=== PATIENT | female | born 1960 | race Caucasian/White ===

== ENCOUNTER 2017-06-15 13:47 | Emergency (ER) | payer OTHER ==
[~2017-06-15] VITALS: Ht 160 cm; Wt 86.2 kg
[2017-06-15 13:48] VITALS: BP 149/64
--- NOTE | 2017-06-15 13:58 | NUR ---
PATIENT TO ER BED 10
--- NOTE | 2017-06-15 14:05 | NUR ---
PT. BIB WITH C/O R UPPER QUADRANT PAIN THAT RADIATES TO R BACK. PT. STATES IT IS 10/10 PAIN THAT IS SHARP AND SUDDEN THAT STARTED X 2 HOURS. AAOX4. RR EVEN AND UNLABORED. LS: CLEAR. DENIES SOB, DENIES CHEST PAIN, N/V IS PRESENT FOR 2 HOURS, PT. DENIES DIAHRRHEA. Marcy LAZAR NOTIFIED. WILL CONTINUE TO MONITOR
[2017-06-15] MEDS ORDERED: NACL 0.9% 500 ML IV ONE (14:11)
[2017-06-15] MEDS ORDERED: ONDANSETRON 4 MG/2 ML VIAL IVP ONE (14:15)
[2017-06-15] MEDS ORDERED: KETOROLAC 30 MG/ML VIAL IVP ONE (14:15)
[2017-06-15 14:36] LABS: BASOPHILS # (AUTO) 0.1 K/uL (0.00-0.22); BASOPHILS % (AUTO) 0.6 % (0.0-2.0); EOSINOPHILS % (AUTO) 0.5 % (0.0-4.0); HEMATOCRIT 40.9 % (36-48); HEMOGLOBIN 13.4 g/dL (12.0-16.0); LYMPHOCYTES # (AUTO) 2.3 K/uL (2.5-16.5); LYMPHOCYTES % (AUTO) 24.8 % (20.5-51.1); MEAN CORPUSCULAR HEMOGLOBIN 30 pg (27-31); MEAN CORPUSCULAR HGB CONC 33 g/dL (33-37); MEAN CORPUSCULAR VOLUME 90.7 fL (80-94); MONOCYTES # (AUTO) 0.4 K/uL (0.8-1.0); MONOCYTES % (AUTO) 4.4 % (1.7-9.3); NEUTROPHILS # (AUTO) 6.4 K/uL (1.8-7.7); NEUTROPHILS % (AUTO) 69.7 % (42.2-75.2); PLATELET COUNT (AUTO) 264 K/uL (140-450); RED CELL DISTRIBUTION WIDTH 13.5 % (11.6-13.7); WHITE BLOOD COUNT (AUTO) 9.2 K/uL (4.8-10.8)
[2017-06-15 14:50] LABS: ALBUMIN 4.4 g/dL (3.4-5.0); ANION GAP 15.1 (8-16); CREATININE 0.8 mg/dL (0.6-1.3); POTASSIUM 4.1 mmol/L (3.5-5.1); TOTAL BILIRUBIN 0.3 mg/dL (0.0-1.0)
--- NOTE | 2017-06-15 15:03 | NUR ---
PT. RESTING COMFORTABLY IN BED, RR EVEN AND UNLABORED, PT. STATES " THE PAIN HAS GONE DOWN A LOT I JUST FEEL LIKE RESTING". AT BEDSIDE. WILL CONTINUE TO MONITOR.
[2017-06-15] MEDS ORDERED: traMADol 50 MG TAB PO ONE (15:50)
[2017-06-15 16:07] VITALS: BP 159/69
--- NOTE | 2017-06-15 16:07 | NUR ---
Patient discharged with v/s stable. Written and verbal after care instructions given and explained. Patient alert, oriented and verbalized understanding of instructions. Ambulatory with steady gait. All questions addressed prior to discharge. ID band removed. Patient advised to follow up with PMD. Rx of ZOFRAN AND TRAMADOL given. Patient educated on indication of medication including possible reaction and side effects. Opportunity to ask questions provided and answered.
== END 2017-06-15 16:07 | disposition home or self-care (01) ==
LOC: MED 13:47
DX: N20.2 Calculus of kidney with calculus of ureter (principal); Z86.73 Personal history of transient ischemic attack (TIA), and cerebral infarction without residual deficits
CPT/HCPCS: 36415; 74176; 80053; 81002; 81025; 85025; 96361; 96374; 96375; 99285; J1885; J2405

== ENCOUNTER 2017-06-16 21:42 | Inpatient (IN) | payer OTHER ==
[~2017-06-16] VITALS: Ht 157.5 cm; Wt 72.6 kg
[2017-06-16 21:51] VITALS: BP 141/59
--- NOTE | 2017-06-16 22:04 | NUR ---
56Y F BIB FAMILY C/O RIGHT FLANK PAIN X 2 DAYS. PT STATS SHE WAS SEEN HERE YESTERDAY FOR SIMILAR COMPLAINT AND WAS TOLD SHE HAS KIDNEY STONES AND GIVEN ULTRAM 50MG FOR PAIN, BUT STATES PAIN NOT RELIEVED. PT ALSO COMPLAINS OF NAUSEA AND VOMITING. PT AAOX4, BREATHING IS UNLABORED AND EVEN. PT AMBULATED TO OF CHAIR B. MD DR YAO MADE AWARE.
--- NOTE | 2017-06-16 22:24 | NUR ---
PATIENT MOVED TO ER BED 10.
[2017-06-16] MEDS ORDERED: KETOROLAC 30 MG/ML VIAL IVP ONE (22:30)
[2017-06-16] MEDS ORDERED: ONDANSETRON 4 MG/2 ML VIAL IVP ONE (22:30)
[2017-06-16] MEDS ORDERED: MORPHINE SULFATE 4 MG/ML SYR IVP ONE (22:30)
[2017-06-16] MEDS ORDERED: NACL 0.9% 1,000 ML IV ONE (22:30)
--- NOTE | 2017-06-17 | NUR ---
PATIENT RESTING AT THIS TIME. NO SIGNS OF DISTRESS.
[2017-06-17 00:15] LABS: APPEARANCE,URINE CLEAR (CLEAR); BILIRUBIN,URINE NEGATIVE (NEGATIVE); BLOOD, URINE 3+ (NEGATIVE); COLOR,URINE YELLOW (YELLOW); LEUKOCYTE ESTERASE ,URINE NEGATIVE (NEGATIVE); NITRITE, URINE NEGATIVE (NEGATIVE); UGLUCOSE NEGATIVE (NEGATIVE)
[2017-06-17 00:26] LABS: RBC,URINE 11-20 (MOD) /HPF (0-5)
[2017-06-17 00:56] LABS: BASOPHILS % (AUTO) 0.1 % (0.0-2.0); EOSINOPHILS % (AUTO) 0.4 % (0.0-4.0); HEMATOCRIT 36.4 % (36-48); HEMOGLOBIN 12.1 g/dL (12.0-16.0); LYMPHOCYTES # (AUTO) 1.8 K/uL (2.5-16.5); MEAN CORPUSCULAR HEMOGLOBIN 30 pg (27-31); MEAN CORPUSCULAR HGB CONC 33 g/dL (33-37); MEAN CORPUSCULAR VOLUME 90.7 fL (80-94); MONOCYTES # (AUTO) 0.7 K/uL (0.8-1.0); NEUTROPHILS # (AUTO) 7.8 K/uL (1.8-7.7); NEUTROPHILS % (AUTO) 75.5 % (42.2-75.2); PLATELET COUNT (AUTO) 229 K/uL (140-450); RED BLOOD CELL COUNT(AUTO) 4.02 MIL/uL (4.20-5.40); RED CELL DISTRIBUTION WIDTH 13.6 % (11.6-13.7); WHITE BLOOD COUNT (AUTO) 10.4 K/uL (4.8-10.8)
[2017-06-17] MEDS ORDERED: cefTRIAXone 1,000 MG VIAL ONE (00:57)
--- NOTE | 2017-06-17 01:00 | NUR ---
PATIENT RESTING AT THIS TIME.
[2017-06-17 01:12] LABS: ANION GAP 13.8 (8-16); CREATININE 0.8 mg/dL (0.6-1.3); POTASSIUM 3.8 mmol/L (3.5-5.1)
[2017-06-17 01:18] LABS: TOTAL BILIRUBIN 0.6 mg/dL (0.0-1.0)
[2017-06-17] MEDS: NACL 0.9% 1,000 ML IV SCH ×5 (01:49→21:49)
[2017-06-17] MEDS ORDERED: ONDANSETRON 4 MG/2 ML VIAL IVP PRN (01:50)
[2017-06-17] MEDS ORDERED: MORPHINE SULFATE 4 MG/ML SYR IVP PRN (01:50)
[2017-06-17] MEDS ORDERED: ACETAMINOPHEN 325 MG TAB PO PRN (01:50)
--- NOTE | 2017-06-17 02:10 | NUR ---
Pt transferred to Med/Surg via .
--- NOTE | 2017-06-17 02:10 | NUR ---
Patient will be admitted to care of DR. JOHNSON. Admited to M/S. Will go to room 125A. Belongings list completed. Report to FERNANDA BETHEA.
--- NOTE | 2017-06-17 02:11 | NUR ---
Patient's Plan of Care was discussed and reviewed with MYRA: JESSA
[2017-06-17 02:15] VITALS: BP_SYST 105; BP_SYST 97; BP_DIAS 42; BP_DIAS 49
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
--- NOTE | 2017-06-17 03:00 | NUR ---
IV LINE INFILTRATED, WILL INSERT NEW IV LINE.
--- NOTE | 2017-06-17 03:45 | NUR ---
NEW IV LINE INSERTED BY [place] AT THE LEFT FOREARM G22.
--- NOTE | 2017-06-17 04:05 | NUR ---
STARTED TO INFUSED ORDERED 1 LITER OF NS AT 150 ML/HR. PATIENT SLEEPING COMFORTABLY.
--- NOTE | 2017-06-17 05:30 | NUR ---
STILL SLEEPING COMFORTABLY IN BED.
--- NOTE | 2017-06-17 06:52 | NUR ---
STILL SLEEPING COMFORTABLY IN BED. CONDITION REMAIN STABLE. WILL ENDORSE TO AM NURSE FOR CONTINUITY OF CARE.
--- NOTE | 2017-06-17 07:20 | NUR ---
CONDITION REMAIN STABLE. ENDORSED TO AM NURSE FOR CONTINUITY OF CARE.
[2017-06-17 08:00] VITALS: BP 157/78
--- NOTE | 2017-06-17 08:00 | NUR ---
PATIENT AWAKE, ALERT. RESPIRATION EVEN, UNLABOR ON ROOM AIR. SKIN DRY AND WARM. IV PATENT AND INTACT. DENIED PAIN, N/V AT THIS TIME. VS IS STABLE. PLAN OF CARE WAS DISCUSSED WITH PATIENT. BED AT LOW POSITION, SIDE RAILS UP. CALL LIGHT WITHIN REACH
--- NOTE | 2017-06-17 08:30 | NUR ---
IVF NS 1000ML WAS FINISHED AT 08
--- NOTE | 2017-06-17 09:00 | NUR ---
INSTRUCTED PATIENT ON BEING STRICT I&O. PATIENT VERBALIZED UNDERSTANDING.
[2017-06-17] MEDS: ENOXAPARIN 40 MG/0.4 ML SYR SUBQ SCH (09:07)
--- NOTE | 2017-06-17 10:00 | NUR ---
NEW IVF NS 1000 ML WAS HUNG.
--- NOTE | 2017-06-17 11:54 | NUR ---
PATIENT IS AWAKE, ALERT. RESPIRATION EVEN, UNLABOR ON ROOM AIR. COMPLAINED RIGHT FLANK PAIN 5/10, WILL MEDICATE PER ORDER.
[2017-06-17] MEDS: HYDROcodone/APAP 5/325 MG 1 TAB TAB PO PRN (12:02)
--- NOTE | 2017-06-17 14:00 | NUR ---
PATIENT FORGOT TO USE URINE COLLECTION HAT. REEXPLAINED TO PATIENT ABOUT STRICT I&O. PATIENT VERBALIZED UNDERSTANDING
--- NOTE | 2017-06-17 14:30 | NUR ---
PATIENT IS AWAKE, ALERT. RESPIRATION EVEN, UNLABOR ON ROOM AIR. DENIED PAIN. NO DISTRESS NOTED AT THIS TIME
--- NOTE | 2017-06-17 15:09 | NUR ---
IVF NS 1000 WAS FINISHED AT 1509.
--- NOTE | 2017-06-17 15:42 | NUR ---
NEW IVF NS 1000 ML WAS HUNG AT 1542
[2017-06-17 16:00] VITALS: BP 122/53
--- NOTE | 2017-06-17 16:38 | NUR ---
PATIENT IS SLEEPING COMFORTABLY. RESPIRATION EVEN, UNLABOR ON ROOM AIR. VS IS STABLE. NO DISTRESS NOTED AT THIS TIME. CALL LIGHT WITHIN REACH. FAMILY AT BEDSIDE
--- NOTE | 2017-06-17 18:09 | NUR ---
PATIENT AWAKE, ALERT, EATING DINNER. FAMILY AT BEDSIDE. NO DISTRESS NOTED AT THIS TIME. DENIED PAIN. IV PATENT AND INTACT. CALL LIGHT WITHIN REACH.
--- NOTE | 2017-06-17 19:20 | NUR ---
ENDORSEMENT GIVEN TO THE BARK SKINNER NURSE. PATIENT IS STABLE AT THIS TIME
--- NOTE | 2017-06-17 19:30 | NUR ---
RECEIVED PT REPORT FROM DEBORAH AT BEDSIDE FOR CONTINUITY OF CARE. PT AWAKE AO X4. NO S/S OF DISTRESS. PT ON SOB, PT RA. NO C/O PAIN AT THIS TIME. IV LINE NOTED LFA 22G NS 150ML/HR. BED LOWERED CALL LIGHT WITHIN REACH. WILL CONTINUE TO MONITOR.
--- NOTE | 2017-06-17 21:59 | NUR ---
CHECKED ON PATIENT. PT IS RESTING ON BED AWAKE WILL CONTINUE TO MONITOR.
[2017-06-18] VITALS: BP 120/60
--- NOTE | 2017-06-18 04:00 | NUR ---
PT CALLED TO LET ME KNOW HER URINAL HAT WAS FULL WILL CONTINUE TO MONITOR
[2017-06-18] MEDS: NACL 0.9% 1,000 ML IV SCH ×3 (05:19→17:49)
[2017-06-18 06:06] LABS: BASOPHILS # (AUTO) 0.1 K/uL (0.00-0.22); BASOPHILS % (AUTO) 0.9 % (0.0-2.0); EOSINOPHILS # (AUTO) 0.2 K/uL (0-0.4); EOSINOPHILS % (AUTO) 2.8 % (0.0-4.0); HEMATOCRIT 33.7 % (36-48); HEMOGLOBIN 11.1 g/dL (12.0-16.0); LYMPHOCYTES # (AUTO) 3.4 K/uL (2.5-16.5); LYMPHOCYTES % (AUTO) 53.3 % (20.5-51.1); MEAN CORPUSCULAR HEMOGLOBIN 30 pg (27-31); MEAN CORPUSCULAR HGB CONC 33 g/dL (33-37); MEAN CORPUSCULAR VOLUME 91.3 fL (80-94); MONOCYTES # (AUTO) 0.5 K/uL (0.8-1.0); MONOCYTES % (AUTO) 7.4 % (1.7-9.3); NEUTROPHILS # (AUTO) 2.2 K/uL (1.8-7.7); NEUTROPHILS % (AUTO) 35.6 % (42.2-75.2); PLATELET COUNT (AUTO) 219 K/uL (140-450); RED CELL DISTRIBUTION WIDTH 13.4 % (11.6-13.7); WHITE BLOOD COUNT (AUTO) 6.3 K/uL (4.8-10.8)
--- NOTE | 2017-06-18 07:23 | NUR ---
GAVE REPORT TO DAYSHIFT NURSE FOR CONTINUITY OF CARE. WILL CONTINUE WITH PLAN OF CARE.
--- NOTE | 2017-06-18 07:23 | NUR ---
PT IN BED RESTING BUT AROUSABLE TO NAME. SHE IS AO X4. SKIN INTACT HAS A IV SITE L F/A 22 G WITH NACL RUNNING AT 150MLS /HR. PT HERE FOR KIDNEY STONE. SHE SAID SHE HAD PAIN 7/10 HEADACHE BUT NO COMPLAINS OF URINARY DISCOMFORT LAST BM 06/16. PT REMAINS ON I AND O MONIOTRING. SHE DECLINED MOST OF HER BREAKFAST DUE TO WANTING EGG WHITES INSTEAD OF SCRAMBLED EGGS. PT GIVEN PRN MEDICATION FOR HEADACHE WITH MORNING MED PASS.
[2017-06-18 07:33] LABS: ANION GAP 11.4 (8-16); POTASSIUM 3.4 mmol/L (3.5-5.1)
[2017-06-18 07:34] LABS: CREATININE 0.6 mg/dL (0.6-1.3)
[2017-06-18 08:00] VITALS: BP 147/59
[2017-06-18] MEDS: ENOXAPARIN 40 MG/0.4 ML SYR SUBQ SCH (08:17)
[2017-06-18] MEDS: HYDROcodone/APAP 5/325 MG 1 TAB TAB PO PRN (08:19)
[2017-06-18] MEDS ORDERED: TAMSULOSIN 0.4 MG CAP PO SCH (08:30)
--- NOTE | 2017-06-18 10:03 | NUR ---
CM NOTE INITIAL REVIEW FAXED TO [facility] [phone] PH# [phone] [facility] EXT [phone] AND TO CENTER LINE FACULTY [phone] PH# [phone] KEVON *[phone]
[2017-06-18 10:58] LABS: MAGNESIUM 2.2 mg/dL (1.8-2.4)
--- NOTE | 2017-06-18 11:30 | NUR ---
PATIENT HAS BEEN SCREENED AND CATEGORIZED LOW NUTRITION RISK. PATIENT WILL BE SEEN WITHIN 7 DAYS OF ADMISSION. 06/24/[address]
--- NOTE | 2017-06-18 13:15 | NUR ---
IV SITE IN LEFT F/A WAS NOTED SLIGHTLY RED AND WOULD NOT FLUSH, NEW IV SITE 20G ON AN ALTERNATE SITE OF LEFT F/A WAS PROVIDED FOR PT. NEW IV FLUSHED PT ON NACL FLUIDS ARE RUNNING ORDERED.
[2017-06-18 16:00] VITALS: BP 104/51
[2017-06-18] MEDS ORDERED: POTASSIUM CHLORIDE 10 MEQ TABER PO SCH (16:00)
--- NOTE | 2017-06-18 17:30 | NUR ---
PT DISCHARGED TO HOME, WITH ALL BELONGINGS, VSS ON DISCHARGE, DISCHARGE INSTRUCTIONS EXPLAINED TO PT, WITH THE OPPORTUNITY TO ASK QUESTIONS, PT VERBALIZED UNDERSTANDING. PERIPHERAL IV SITE OUT AND ID BAND REMOVED.
--- NOTE | 2017-06-18 19:35 | NUR ---
PT STABLE UPON DISCHARGE, ACCOMPANIED BY FAMILY MEMBER.
== END 2017-06-18 19:35 | disposition home or self-care (01) | DRG 465 ==
LOC: MED 21:42 → MMU 06-17 01:55 → OBSVTOIN 06-17 15:30
PROVIDERS: ADMIT Hospitalist; ATTEND Hospitalist
DX: N13.2 Hydronephrosis with renal and ureteral calculous obstruction (principal); N39.0 Urinary tract infection, site not specified; Z86.73 Personal history of transient ischemic attack (TIA), and cerebral infarction without residual deficits; Z82.5 Family history of asthma and other chronic lower respiratory diseases; Z82.49 Family history of ischemic heart disease and other diseases of the circulatory system
CPT/HCPCS: 96361; 96365; 96375; 99218; 99285; G0378; 36415; 80048; 80053; 81001; 81025; 83735; 84100; 85025; 87081; 87086; J0696; J1650; J1885; J2270; J2405; J7030; J7060

== ENCOUNTER 2018-07-11 06:40 | Emergency (ER) | payer OTHER ==
[~2018-07-11] VITALS: Ht 157.5 cm; Wt 83.9 kg
[2018-07-11 06:47] VITALS: BP 135/82
--- NOTE | 2018-07-11 06:47 | NUR ---
TO BED # 03 AMBULATORY.
--- NOTE | 2018-07-11 07:03 | NUR ---
57 YO F BIB SELF PRESENTS TO ED C/O 09/28 RIGHT SHOULDER PAIN S/P FALL ONTO FLOOR AT WORK YESTERDAY. ROM AFFECTED. RADIAL PULSE STRONG. CAP REFILL <3 SECONDS, BRISK. NO BRUISING, SWELLING, GROSS TRAUMA/DEFORMITY NOTED. LARGE AREA OF ECCHYMOSIS NOTED TO LEFT SIDE RIB CAGE. PMH-- DENIES RX-- DENIES
--- NOTE | 2018-07-11 07:48 | NUR ---
UA DONE, XRAY DONE.
[2018-07-11] MEDS ORDERED: KETOROLAC 60 MG/2 ML VIAL IM ONE (07:50)
--- NOTE | 2018-07-11 09:09 | NUR ---
Pt report given to Shima. Transfer of care at this time.
--- NOTE | 2018-07-11 09:44 | NUR ---
Patient appears to be resting comfortably in bed. Vital Signs within normal limits.
[2018-07-11 10:11] VITALS: BP 135/55
== END 2018-07-11 10:11 | disposition home or self-care (01) ==
LOC: MED 06:40
DX: S46.911A Strain of unspecified muscle, fascia and tendon at shoulder and upper arm level, right arm, initial encounter (principal); S20.20XA Contusion of thorax, unspecified, initial encounter; Z86.73 Personal history of transient ischemic attack (TIA), and cerebral infarction without residual deficits; W01.0XXA Fall on same level from slipping, tripping and stumbling without subsequent striking against object, initial encounter; Y93.89 Activity, other specified; Y92.89 Other specified places as the place of occurrence of the external cause; Y99.0 Civilian activity done for income or pay
CPT/HCPCS: 71101; 73030; 81002; 81025; 96372; 99283; J1885; Q0092

== ENCOUNTER 2018-07-25 21:05 | Emergency (ER) | payer OTHER ==
[~2018-07-25] VITALS: Ht 152.4 cm; Wt 87.1 kg
[2018-07-25 21:10] VITALS: BP 130/60
--- NOTE | 2018-07-25 21:10 | NUR ---
TO BED # 02 AMBULATORY
--- NOTE | 2018-07-25 21:25 | NUR ---
BIB SELF REPORTS DRY COUGH X 2 WEEKS. LUNG SOUNDS DIMINISHED THROUGHOUT. STATES NO OTHER SYMPTOMS. DENIES CP, SOB, FEVER, NVD, OR PAIN AT THIS TIME. NO LABORED BREATHING, PATIENT SPEAKING IN FULL SENTENCES. ERMD AWARE OF STATUS. BED IN LOW LOCKED POSITION.
[2018-07-25] MEDS ORDERED: ALBUTEROL SULFATE/IPRATROPIU 3 ML SOL IH ONE ×2 (21:50→23:20)
--- NOTE | 2018-07-25 22:05 | NUR ---
RT AT BEDSIDE FOR INTERVENTION.
[2018-07-25] MEDS ORDERED: predniSONE 20 MG TAB PO ONE (23:25)
[2018-07-26 00:47] VITALS: BP 135/62
--- NOTE | 2018-07-26 00:48 | NUR ---
Patient discharged with v/s stable. Written and verbal after care instructions given and explained. Patient alert, oriented and verbalized understanding of instructions. Ambulatory with steady gait. All questions addressed prior to discharge. ID band removed. Patient advised to follow up with PMD. Rx of PREDNISONE, ALBUTEROL INH given. Patient educated on indication of medication including possible reaction and side effects. Opportunity to ask questions provided and answered.
== END 2018-07-26 00:48 | disposition home or self-care (01) ==
LOC: MED 21:05
DX: R05 Cough (principal); R06.02 Shortness of breath; R50.9 Fever, unspecified; Z86.73 Personal history of transient ischemic attack (TIA), and cerebral infarction without residual deficits
CPT/HCPCS: 71045; 94640; 94760; 99284; J7512; J7620; Q0092

== ENCOUNTER 2021-05-27 15:55 | Emergency (ER) | payer OTHER ==
[~2021-05-27] VITALS: Ht 152.4 cm; Wt 90.3 kg
[2021-05-27 15:55] VITALS: BP 163/89
--- NOTE | 2021-05-27 16:27 | NUR ---
AMBULATED TO BED 1
[2021-05-27] MEDS ORDERED: KETOROLAC 30 MG/ML VIAL IM ONE (16:45)
--- NOTE | 2021-05-27 16:49 | NUR ---
60 YEARS OLD FEMALE WALKING TO ER C/O ACUTE RIGHT KNEE PAIN AFTER FALL 1 WEEK AGO NO RELIEF WITH PRESCRIBED IBUPROFEN.
[2021-05-27] MEDS ORDERED: ACET-8386 PO (17:57)
[2021-05-27 18:13] VITALS: BP 140/80
--- NOTE | 2021-05-27 18:15 | NUR ---
Patient discharged with v/s stable. Written and verbal after care instructions given and explained to paTIENT. verbalized understanding. Ambulatorysteady gait. All questions addressed prior to discharge. Advised to follow up with PMD.
== END 2021-05-27 18:15 | disposition home or self-care (01) ==
LOC: MED 15:55
DX: M79.604 Pain in right leg (principal); Z86.73 Personal history of transient ischemic attack (TIA), and cerebral infarction without residual deficits
CPT/HCPCS: 73560; 73590; 93971; 96372; 99284; J1885; Q0092

== ENCOUNTER 2022-08-02 20:29 | Emergency (ER) | payer OTHER ==
[~2022-08-02] VITALS: Ht 160 cm; Wt 89.8 kg
[~2022-08-02 20:29] MED LIST: ACET-8905 PO
[2022-08-02 20:30] VITALS: BP 150/71
--- NOTE | 2022-08-02 20:33 | NUR ---
TO LOBBY A/W BED AMBULATORY
--- NOTE | 2022-08-02 21:36 | NUR ---
PT TO BED #4
--- NOTE | 2022-08-02 22:08 | NUR ---
61 Y/O F from home presents with lower back stabbing pain /10 radiating to ABD x2days. pt denies any NVD or headaches. pt is A&Ox4, skin intact, respirations even and unlabored, ambulatory. pt stated she took ibuprofen at home with no relief. pmh- pt denies NKA
--- NOTE | 2022-08-02 22:13 | NUR ---
Dr. Clark examining patient.
[2022-08-02] MEDS ORDERED: KETOROLAC 30 MG/ML VIAL IM ONE (22:25)
[2022-08-02] MEDS ORDERED: LIDOCAINE 5% 1 EA PATCH TP ONE (22:25)
[2022-08-02] MEDS ORDERED: ACETAMINOPHEN EXTRA STRENGTH 500 MG TAB PO ONE (22:25)
--- NOTE | 2022-08-02 23:00 | NUR ---
PT RETURN FROM XRAY
[2022-08-03] MEDS ORDERED: CYCL-711 PO (00:02)
[2022-08-03] MEDS ORDERED: IBUP-2213 PO (00:02)
[2022-08-03] MEDS ORDERED: ACET-10509 PO (00:02)
--- NOTE | 2022-08-03 00:10 | NUR ---
Patient discharged with v/s stable. Written and verbal after care instructions given and explained. Patient alert, oriented and verbalized understanding of instructions. Ambulatory with steady gait. All questions addressed prior to discharge. ID band removed. Patient advised to follow up with PMD. Rx of tylenol extra strength, flexeril, and ibuprofen given. Opportunity to ask questions provided and answered.
== END 2022-08-03 00:10 | disposition home or self-care (01) ==
LOC: MED 20:29
DX: S39.012A Strain of muscle, fascia and tendon of lower back, initial encounter (principal); Z79.899 Other long term (current) drug therapy; X58.XXXA Exposure to other specified factors, initial encounter; Y93.89 Activity, other specified; Y92.89 Other specified places as the place of occurrence of the external cause; Y99.8 Other external cause status
CPT/HCPCS: 72100; 96372; 99283; J1885

== ENCOUNTER 2022-08-05 16:14 | Emergency (ER) | payer OTHER ==
[~2022-08-05] VITALS: Ht 162.6 cm; Wt 89.8 kg
[~2022-08-05 16:14] MED LIST changes: +ACET-10509 PO; +CYCL-711 PO; +IBUP-2213 PO
[2022-08-05 16:26] VITALS: BP 137/73
--- NOTE | 2022-08-05 16:35 | NUR ---
HERE FOR RASH LEFT FLANK, NO PAIN
[2022-08-05] MEDS ORDERED: KETOROLAC 30 MG/ML VIAL IM ONE (18:20)
[2022-08-05] MEDS ORDERED: HYDROcodone/APAP 5/325 MG 1 TAB TAB PO ONE (18:20)
[2022-08-05] MEDS ORDERED: ACYC-279 PO (18:28)
[2022-08-05 19:12] VITALS: BP 129/74
--- NOTE | 2022-08-05 19:19 | NUR ---
dc'd home, a/o times 4, nad, pain 02/28 Patient discharged with v/s stable. Written and verbal after care instructions given and explained. Patient verbalized understanding. Ambulatory with steady gait. All questions addressed prior to discharge. Advised to follow up with PMD.
== END 2022-08-05 19:12 | disposition home or self-care (01) ==
LOC: MED 16:14
DX: B02.9 Zoster without complications (principal); Z79.899 Other long term (current) drug therapy; Z98.890 Other specified postprocedural states
CPT/HCPCS: 96372; 99283; J1885

== ENCOUNTER 2022-12-21 23:49 | Emergency (ER) | payer OTHER ==
[~2022-12-21] VITALS: Ht 152.4 cm; Wt 89.8 kg
[~2022-12-21 23:49] MED LIST changes: +ACYC-279 PO
[2022-12-22] VITALS: BP 169/78; PULSE 65; RESP 16; TEMP 97.7; O2SAT 97
[2022-12-22 01:55] LABS: APPEARANCE,URINE CLEAR (CLEAR); BILIRUBIN,URINE NEGATIVE (NEGATIVE); BLOOD, URINE NEGATIVE (NEGATIVE); COLOR,URINE YELLOW (YELLOW); LEUKOCYTE ESTERASE ,URINE NEGATIVE (NEGATIVE); NITRITE, URINE NEGATIVE (NEGATIVE); PH,URINE 7.5 (5.0-9.0); PROTEIN,URINE NEGATIVE (NEGATIVE); UGLUCOSE NEGATIVE (NEGATIVE); UROBILINOGEN,URINE 0.2 EU/dL (0.2 - 1)
[2022-12-22] MEDS ORDERED: DICYCLOMINE 20 MG/2 ML VIAL IM ONE (02:25)
[2022-12-22] MEDS ORDERED: ONDANSETRON 4 MG/2 ML VIAL IVP ONE (02:25)
[2022-12-22] MEDS ORDERED: NACL 0.9% 1,000 ML IV ONE (02:25)
[2022-12-22 03:19] LABS: BASOPHILS # (AUTO) 0.1 K/uL (0.00-0.22); BASOPHILS % (AUTO) 0.8 % (0.0-2.0); EOSINOPHILS % (AUTO) 0.1 % (0.0-4.0); HEMATOCRIT 40.6 % (36-48); HEMOGLOBIN 13.5 g/dL (12.0-16.0); LYMPHOCYTES # (AUTO) 1.9 K/uL (2.5-16.5); MEAN CORPUSCULAR HEMOGLOBIN 30 pg (27-31); MEAN CORPUSCULAR HGB CONC 33 g/dL (33-37); MEAN CORPUSCULAR VOLUME 91.4 fL (80-94); MONOCYTES # (AUTO) 0.3 K/uL (0.8-1.0); MONOCYTES % (AUTO) 3.3 % (1.7-9.3); NEUTROPHILS # (AUTO) 8.3 K/uL (1.8-7.7); NEUTROPHILS % (AUTO) 77.8 % (42.2-75.2); PLATELET COUNT (AUTO) 266 K/uL (140-450); RED BLOOD CELL COUNT(AUTO) 4.44 MIL/uL (4.20-5.40); RED CELL DISTRIBUTION WIDTH 13.3 % (11.6-13.7); WHITE BLOOD COUNT (AUTO) 10.7 K/uL (4.8-10.8)
[2022-12-22 03:44] LABS: ALBUMIN 4.1 g/dL (3.4-5.0); ANION GAP 14.5 (8-16); CALCIUM 8.7 mg/dL (8.5-10.1); CARBON DIOXIDE 25.9 mmol/L (21-32); CREATININE 0.7 mg/dL (0.6-1.3); POTASSIUM 4.4 mmol/L (3.5-5.1); TOTAL BILIRUBIN 0.6 mg/dL (0.0-1.0); TOTAL PROTEIN, SERUM 8.3 g/dL (6.4-8.2)
[2022-12-22] MEDS ORDERED: ONDA-188 SL ×2 (04:10→04:22)
[2022-12-22] MEDS ORDERED: BEN10 PO ×2 (04:10→04:22)
[2022-12-22 04:20] VITALS: BP 161/59; PULSE 62; RESP 16; TEMP 97.7; O2SAT 96
== END 2022-12-22 04:20 | disposition home or self-care (01) ==
LOC: MED 23:49
DX: A08.4 Viral intestinal infection, unspecified (principal); Z98.890 Other specified postprocedural states; Z79.899 Other long term (current) drug therapy; Z79.1 Long term (current) use of non-steroidal anti-inflammatories (NSAID)
CPT/HCPCS: 36415; 74022; 80053; 81003; 83605; 83690; 85025; 96361; 96372; 96374; 99284; J0500; J2405; J7030

== ENCOUNTER 2023-01-18 15:23 | Inpatient (IN) | payer OTHER ==
[~2023-01-18] VITALS: Ht 147.3 cm; Wt 87.2 kg
[~2023-01-18 15:23] MED LIST changes: +BEN10 PO; +ONDA-188 SL
[2023-01-18 15:45] VITALS: BP 103/71; PULSE 115; RESP 19; TEMP 96.4; O2SAT 95
[2023-01-18 17:03] LABS: BASOPHILS # (AUTO) 0.1 K/uL (0.00-0.22); BASOPHILS % (AUTO) 0.4 % (0.0-2.0); EOSINOPHILS % (AUTO) 0.1 % (0.0-4.0); HEMATOCRIT 37.8 % (36-48); HEMOGLOBIN 12.5 g/dL (12.0-16.0); LYMPHOCYTES # (AUTO) 0.6 K/uL (2.5-16.5); LYMPHOCYTES % (AUTO) 4.6 % (20.5-51.1); MEAN CORPUSCULAR HEMOGLOBIN 30 pg (27-31); MEAN CORPUSCULAR HGB CONC 33 g/dL (33-37); MONOCYTES # (AUTO) 0.7 K/uL (0.8-1.0); MONOCYTES % (AUTO) 5.1 % (1.7-9.3); NEUTROPHILS % (AUTO) 89.8 % (42.2-75.2); PLATELET COUNT (AUTO) 168 K/uL (140-450); RED CELL DISTRIBUTION WIDTH 13.9 % (11.6-13.7); WHITE BLOOD COUNT (AUTO) 13.4 K/uL (4.8-10.8)
[2023-01-18] MEDS ORDERED: NACL 0.9% 1,000 ML IV ONE (17:05)
[2023-01-18] MEDS ORDERED: METOCLOPRAMIDE 10 MG/2 ML INJ VIAL IVP ONE (17:05)
[2023-01-18] MEDS ORDERED: diphenhydrAMINE 50 MG/ML VIAL IVP ONE (17:05)
[2023-01-18 17:25] LABS: ALBUMIN 3.6 g/dL (3.4-5.0); ANION GAP 15.3 (8-16); CALCIUM 8.8 mg/dL (8.5-10.1); CARBON DIOXIDE 23.8 mmol/L (21-32); POTASSIUM 3.1 mmol/L (3.5-5.1); TOTAL BILIRUBIN 0.9 mg/dL (0.0-1.0); TOTAL PROTEIN, SERUM 7.7 g/dL (6.4-8.2)
[2023-01-18 17:27] LABS: LIPASE 24 U/L (16-77)
[2023-01-18] MEDS ORDERED: ASPIRIN 325 MG TAB PO ONE (17:35)
[2023-01-18 18:48] LABS: LACTIC ACID 1.2 mmol/L (0.4-2.0)
[2023-01-18 18:59] LABS: APPEARANCE,URINE SL CLOUDY (CLEAR); BILIRUBIN,URINE 2+ (NEGATIVE); BLOOD, URINE NEGATIVE (NEGATIVE); COLOR,URINE YELLOW (YELLOW); LEUKOCYTE ESTERASE ,URINE NEGATIVE (NEGATIVE); NITRITE, URINE NEGATIVE (NEGATIVE); PROTEIN,URINE 1+ (NEGATIVE); UGLUCOSE TRACE (NEGATIVE); UROBILINOGEN,URINE 0.2 EU/dL (0.2 - 1)
[2023-01-18 19:24] LABS: ICTOTEST NEGATIVE (NEGATIVE)
[2023-01-18] MEDS ORDERED: cefTRIAXone 1,000 MG VIAL ONE (20:33)
[2023-01-18] MEDS ORDERED: KCL 20 MEQ IN 100 mL PREMIX 200 ML IV PRN (22:10)
[2023-01-18] MEDS ORDERED: MAGNESIUM OXIDE 400 MG TAB PO PRN (22:10)
[2023-01-18] MEDS ORDERED: POTASSIUM CHLORIDE 10 MEQ TABER PO PRN (22:10)
[2023-01-18] MEDS ORDERED: MAG SULF 2000 MG/WATER PREMIX 50 ML IV PRN (22:10)
[2023-01-18] MEDS ORDERED: MORPHINE SULFATE 2 MG/ML SYR IVP PRN (22:10)
[2023-01-19] MEDS: ACETAMINOPHEN 325 MG TAB PO PRN (00:32)
[2023-01-19 05:44] LABS: BASOPHILS % (AUTO) 0.2 % (0.0-2.0); EOSINOPHILS % (AUTO) 0.1 % (0.0-4.0); HEMATOCRIT 33.9 % (36-48); HEMOGLOBIN 11.4 g/dL (12.0-16.0); LYMPHOCYTES # (AUTO) 0.7 K/uL (2.5-16.5); LYMPHOCYTES % (AUTO) 7.1 % (20.5-51.1); MEAN CORPUSCULAR HEMOGLOBIN 30 pg (27-31); MEAN CORPUSCULAR HGB CONC 34 g/dL (33-37); MEAN CORPUSCULAR VOLUME 90.1 fL (80-94); MONOCYTES # (AUTO) 0.6 K/uL (0.8-1.0); MONOCYTES % (AUTO) 5.7 % (1.7-9.3); NEUTROPHILS # (AUTO) 8.5 K/uL (1.8-7.7); NEUTROPHILS % (AUTO) 86.9 % (42.2-75.2); PLATELET COUNT (AUTO) 149 K/uL (140-450); RED BLOOD CELL COUNT(AUTO) 3.76 MIL/uL (4.20-5.40); RED CELL DISTRIBUTION WIDTH 13.6 % (11.6-13.7); WHITE BLOOD COUNT (AUTO) 9.8 K/uL (4.8-10.8)
[2023-01-19 06:52] LABS: ALBUMIN 2.9 g/dL (3.4-5.0); ANION GAP 16.7 (8-16); CALCIUM 8.4 mg/dL (8.5-10.1); CARBON DIOXIDE 23.6 mmol/L (21-32); CREATININE 0.8 mg/dL (0.6-1.3); POTASSIUM 3.3 mmol/L (3.5-5.1); TOTAL BILIRUBIN 0.7 mg/dL (0.0-1.0); TOTAL PROTEIN, SERUM 6.8 g/dL (6.4-8.2)
[2023-01-19] MEDS: HYDROcodone/APAP 5/325 MG 1 TAB TAB PO PRN (08:24)
[2023-01-19] MEDS: ASPIRIN 81 MG TAB.CHEW PO SCH (09:33)
[2023-01-19 19:37] VITALS: O2SAT 97
[2023-01-19] MEDS ORDERED: cefTRIAXone 1,000 MG VIAL ONE (21:05)
[2023-01-19] MEDS: metroNIDAZOLE 500 MG/NS PREMIX 100 ML IV SCH (21:38)
[2023-01-19] MEDS: ATORVASTATIN 20 MG TAB PO SCH (21:56)
[2023-01-19 23:11] VITALS: BP 120/62; PULSE 83; RESP 18; TEMP 98.9; O2SAT 97
[2023-01-20 04:00] VITALS: BP 118/64; PULSE 76; RESP 18; TEMP 98.9; O2SAT 98
[2023-01-20] MEDS: metroNIDAZOLE 500 MG/NS PREMIX 100 ML IV SCH ×3 (04:36→20:59)
[2023-01-20 07:23] LABS: BASOPHILS % (AUTO) 0.5 % (0.0-2.0); EOSINOPHILS # (AUTO) 0.2 K/uL (0-0.4); EOSINOPHILS % (AUTO) 2.3 % (0.0-4.0); HEMATOCRIT 32.9 % (36-48); HEMOGLOBIN 10.8 g/dL (12.0-16.0); LYMPHOCYTES # (AUTO) 2.2 K/uL (2.5-16.5); LYMPHOCYTES % (AUTO) 28.6 % (20.5-51.1); MEAN CORPUSCULAR HEMOGLOBIN 30 pg (27-31); MEAN CORPUSCULAR HGB CONC 33 g/dL (33-37); MONOCYTES # (AUTO) 1.2 K/uL (0.8-1.0); MONOCYTES % (AUTO) 15.3 % (1.7-9.3); NEUTROPHILS # (AUTO) 4.2 K/uL (1.8-7.7); NEUTROPHILS % (AUTO) 53.3 % (42.2-75.2); PLATELET COUNT (AUTO) 161 K/uL (140-450); RED BLOOD CELL COUNT(AUTO) 3.66 MIL/uL (4.20-5.40); RED CELL DISTRIBUTION WIDTH 13.8 % (11.6-13.7); WHITE BLOOD COUNT (AUTO) 7.9 K/uL (4.8-10.8)
[2023-01-20 07:40] LABS: ALBUMIN 2.6 g/dL (3.4-5.0); CALCIUM 8.4 mg/dL (8.5-10.1); CARBON DIOXIDE 27.3 mmol/L (21-32); CREATININE 0.6 mg/dL (0.6-1.3); MAGNESIUM 2.3 mg/dL (1.8-2.4); POTASSIUM 3.3 mmol/L (3.5-5.1); TOTAL BILIRUBIN 0.3 mg/dL (0.0-1.0); TOTAL PROTEIN, SERUM 6.7 g/dL (6.4-8.2)
[2023-01-20 08:00] VITALS: BP 136/76; PULSE 75; PULSE 76; RESP 18; RESP 20; TEMP 98.9; O2SAT 98
[2023-01-20] MEDS: ASPIRIN 81 MG TAB.CHEW PO SCH (09:24)
[2023-01-20 12:00] VITALS: BP 121/32; PULSE 71; PULSE 76; RESP 18; TEMP 97.1; O2SAT 96
[2023-01-20 16:00] VITALS: BP 114/43; PULSE 75; PULSE 83; RESP 18; TEMP 98.1; O2SAT 100
[2023-01-20 20:00] VITALS: BP 127/64; PULSE 78; PULSE 85; RESP 18; TEMP 97.9; O2SAT 97
[2023-01-20] MEDS: ATORVASTATIN 20 MG TAB PO SCH (20:57)
[2023-01-21] VITALS (8 sets, daily range): BP systolic 126–154; BP diastolic 60–89; PULSE 62–81; RESP 16–19; TEMP 97–98.4; O2SAT 97–98
[2023-01-21] MEDS: metroNIDAZOLE 500 MG/NS PREMIX 100 ML IV SCH ×3 (05:58→21:16)
[2023-01-21 07:09] LABS: BASOPHILS # (AUTO) 0.1 K/uL (0.00-0.22); BASOPHILS % (AUTO) 0.8 % (0.0-2.0); EOSINOPHILS # (AUTO) 0.2 K/uL (0-0.4); EOSINOPHILS % (AUTO) 2.4 % (0.0-4.0); HEMATOCRIT 34.5 % (36-48); HEMOGLOBIN 11.4 g/dL (12.0-16.0); LYMPHOCYTES # (AUTO) 2.4 K/uL (2.5-16.5); MEAN CORPUSCULAR HEMOGLOBIN 30 pg (27-31); MEAN CORPUSCULAR HGB CONC 33 g/dL (33-37); MEAN CORPUSCULAR VOLUME 90.2 fL (80-94); MONOCYTES # (AUTO) 0.9 K/uL (0.8-1.0); MONOCYTES % (AUTO) 13.5 % (1.7-9.3); NEUTROPHILS # (AUTO) 3.4 K/uL (1.8-7.7); NEUTROPHILS % (AUTO) 48.3 % (42.2-75.2); PLATELET COUNT (AUTO) 193 K/uL (140-450); RED BLOOD CELL COUNT(AUTO) 3.83 MIL/uL (4.20-5.40); RED CELL DISTRIBUTION WIDTH 13.8 % (11.6-13.7)
[2023-01-21 08:02] LABS: ALBUMIN 2.9 g/dL (3.4-5.0); CALCIUM 8.7 mg/dL (8.5-10.1); CARBON DIOXIDE 27.8 mmol/L (21-32); CREATININE 0.6 mg/dL (0.6-1.3); MAGNESIUM 2.1 mg/dL (1.8-2.4); POTASSIUM 3.8 mmol/L (3.5-5.1); TOTAL BILIRUBIN 0.3 mg/dL (0.0-1.0); TOTAL PROTEIN, SERUM 7.1 g/dL (6.4-8.2)
[2023-01-21] MEDS: ASPIRIN 81 MG TAB.CHEW PO SCH (09:03)
[2023-01-21] MEDS ORDERED: REGADENOSON 0.4 MG/5 ML SYR IV ONE (17:35)
[2023-01-21] MEDS ORDERED: ONDANSETRON 4 MG/2 ML VIAL IVP PRN ×2 (21:05→21:25)
[2023-01-21] MEDS: ATORVASTATIN 20 MG TAB PO SCH (21:15)
[2023-01-22] VITALS (8 sets, daily range): BP systolic 106–137; BP diastolic 54–73; PULSE 59–79; RESP 17–18; TEMP 96.7–98.8; O2SAT 96–98
[2023-01-22] MEDS: metroNIDAZOLE 500 MG/NS PREMIX 100 ML IV SCH ×3 (04:08→21:18)
[2023-01-22 06:35] LABS: BASOPHILS % (AUTO) 0.7 % (0.0-2.0); EOSINOPHILS # (AUTO) 0.1 K/uL (0-0.4); EOSINOPHILS % (AUTO) 1.5 % (0.0-4.0); HEMATOCRIT 35.7 % (36-48); HEMOGLOBIN 11.9 g/dL (12.0-16.0); LYMPHOCYTES # (AUTO) 2.2 K/uL (2.5-16.5); LYMPHOCYTES % (AUTO) 36.7 % (20.5-51.1); MEAN CORPUSCULAR HEMOGLOBIN 30 pg (27-31); MEAN CORPUSCULAR HGB CONC 33 g/dL (33-37); MEAN CORPUSCULAR VOLUME 89.7 fL (80-94); MONOCYTES # (AUTO) 0.6 K/uL (0.8-1.0); MONOCYTES % (AUTO) 10.7 % (1.7-9.3); NEUTROPHILS % (AUTO) 50.4 % (42.2-75.2); PLATELET COUNT (AUTO) 213 K/uL (140-450); RED BLOOD CELL COUNT(AUTO) 3.98 MIL/uL (4.20-5.40); RED CELL DISTRIBUTION WIDTH 13.7 % (11.6-13.7); WHITE BLOOD COUNT (AUTO) 5.9 K/uL (4.8-10.8)
[2023-01-22 07:13] LABS: ALBUMIN 3.1 g/dL (3.4-5.0); ANION GAP 13.9 (8-16); CARBON DIOXIDE 26.7 mmol/L (21-32); CREATININE 0.7 mg/dL (0.6-1.3); MAGNESIUM 2.2 mg/dL (1.8-2.4); POTASSIUM 3.6 mmol/L (3.5-5.1); TOTAL BILIRUBIN 0.3 mg/dL (0.0-1.0); TOTAL PROTEIN, SERUM 7.3 g/dL (6.4-8.2)
[2023-01-22] MEDS: ASPIRIN 81 MG TAB.CHEW PO SCH (10:17)
[2023-01-22] MEDS: ATORVASTATIN 20 MG TAB PO SCH (20:39)
[2023-01-23] VITALS (8 sets, daily range): BP systolic 122–147; BP diastolic 60–80; PULSE 60–74; RESP 18–20; TEMP 97–97.6; O2SAT 97–98
[2023-01-23] MEDS: metroNIDAZOLE 500 MG/NS PREMIX 100 ML IV SCH ×3 (04:29→21:39)
[2023-01-23 07:13] LABS: BASOPHILS % (AUTO) 0.6 % (0.0-2.0); EOSINOPHILS # (AUTO) 0.1 K/uL (0-0.4); EOSINOPHILS % (AUTO) 1.9 % (0.0-4.0); HEMATOCRIT 36.4 % (36-48); HEMOGLOBIN 12.1 g/dL (12.0-16.0); LYMPHOCYTES # (AUTO) 2.9 K/uL (2.5-16.5); LYMPHOCYTES % (AUTO) 40.2 % (20.5-51.1); MEAN CORPUSCULAR HEMOGLOBIN 30 pg (27-31); MEAN CORPUSCULAR HGB CONC 33 g/dL (33-37); MEAN CORPUSCULAR VOLUME 88.8 fL (80-94); MONOCYTES # (AUTO) 0.6 K/uL (0.8-1.0); MONOCYTES % (AUTO) 7.8 % (1.7-9.3); NEUTROPHILS # (AUTO) 3.6 K/uL (1.8-7.7); NEUTROPHILS % (AUTO) 49.5 % (42.2-75.2); PLATELET COUNT (AUTO) 254 K/uL (140-450); RED CELL DISTRIBUTION WIDTH 13.6 % (11.6-13.7); WHITE BLOOD COUNT (AUTO) 7.3 K/uL (4.8-10.8)
[2023-01-23 07:33] LABS: ANION GAP 14.3 (8-16); CALCIUM 8.8 mg/dL (8.5-10.1); CARBON DIOXIDE 26.6 mmol/L (21-32); CREATININE 0.7 mg/dL (0.6-1.3); POTASSIUM 3.9 mmol/L (3.5-5.1); TOTAL BILIRUBIN 0.3 mg/dL (0.0-1.0); TOTAL PROTEIN, SERUM 7.2 g/dL (6.4-8.2)
[2023-01-23] MEDS: ASPIRIN 81 MG TAB.CHEW PO SCH (09:00)
[2023-01-23] MEDS: ATORVASTATIN 20 MG TAB PO SCH (20:32)
[2023-01-24] VITALS (7 sets, daily range): BP systolic 112–147; BP diastolic 65–76; PULSE 60–82; RESP 16–19; TEMP 97.4–97.8; O2SAT 96–98
[2023-01-24] MEDS: metroNIDAZOLE 500 MG/NS PREMIX 100 ML IV SCH (04:19)
[2023-01-24 07:02] LABS: BASOPHILS # (AUTO) 0.1 K/uL (0.00-0.22); BASOPHILS % (AUTO) 0.7 % (0.0-2.0); EOSINOPHILS # (AUTO) 0.1 K/uL (0-0.4); EOSINOPHILS % (AUTO) 1.6 % (0.0-4.0); HEMATOCRIT 37.2 % (36-48); HEMOGLOBIN 12.5 g/dL (12.0-16.0); LYMPHOCYTES # (AUTO) 2.5 K/uL (2.5-16.5); LYMPHOCYTES % (AUTO) 30.9 % (20.5-51.1); MEAN CORPUSCULAR HEMOGLOBIN 30 pg (27-31); MEAN CORPUSCULAR HGB CONC 34 g/dL (33-37); MEAN CORPUSCULAR VOLUME 89.1 fL (80-94); MONOCYTES # (AUTO) 0.6 K/uL (0.8-1.0); MONOCYTES % (AUTO) 7.5 % (1.7-9.3); NEUTROPHILS # (AUTO) 4.7 K/uL (1.8-7.7); NEUTROPHILS % (AUTO) 59.3 % (42.2-75.2); PLATELET COUNT (AUTO) 305 K/uL (140-450); RED BLOOD CELL COUNT(AUTO) 4.17 MIL/uL (4.20-5.40); RED CELL DISTRIBUTION WIDTH 13.9 % (11.6-13.7); WHITE BLOOD COUNT (AUTO) 7.9 K/uL (4.8-10.8)
[2023-01-24 07:12] LABS: ALBUMIN 3.2 g/dL (3.4-5.0); ANION GAP 14.9 (8-16); CALCIUM 8.9 mg/dL (8.5-10.1); CARBON DIOXIDE 23.7 mmol/L (21-32); CREATININE 0.7 mg/dL (0.6-1.3); POTASSIUM 3.6 mmol/L (3.5-5.1); TOTAL BILIRUBIN 0.3 mg/dL (0.0-1.0); TOTAL PROTEIN, SERUM 7.4 g/dL (6.4-8.2)
[2023-01-24] MEDS ORDERED: REGADENOSON 0.4 MG/5 ML SYR IV SCH (09:05)
[2023-01-24] MEDS ORDERED: REGADENOSON 0.4 MG/5 ML SYR IV ONE (10:15)
[2023-01-24] MEDS: ASPIRIN 81 MG TAB.CHEW PO SCH (13:22)
[2023-01-24] MEDS: ATORVASTATIN 20 MG TAB PO SCH (20:41)
[2023-01-25 04:00] VITALS: BP 129/78; PULSE 61; RESP 16; TEMP 97; O2SAT 96
[2023-01-25 06:09] LABS: BASOPHILS # (AUTO) 0.1 K/uL (0.00-0.22); BASOPHILS % (AUTO) 0.8 % (0.0-2.0); EOSINOPHILS # (AUTO) 0.2 K/uL (0-0.4); EOSINOPHILS % (AUTO) 1.8 % (0.0-4.0); HEMATOCRIT 39.7 % (36-48); HEMOGLOBIN 13.1 g/dL (12.0-16.0); LYMPHOCYTES # (AUTO) 3.6 K/uL (2.5-16.5); LYMPHOCYTES % (AUTO) 36.9 % (20.5-51.1); MEAN CORPUSCULAR HEMOGLOBIN 30 pg (27-31); MEAN CORPUSCULAR HGB CONC 33 g/dL (33-37); MEAN CORPUSCULAR VOLUME 89.7 fL (80-94); MONOCYTES # (AUTO) 0.6 K/uL (0.8-1.0); MONOCYTES % (AUTO) 6.4 % (1.7-9.3); NEUTROPHILS # (AUTO) 5.3 K/uL (1.8-7.7); NEUTROPHILS % (AUTO) 54.1 % (42.2-75.2); PLATELET COUNT (AUTO) 349 K/uL (140-450); RED BLOOD CELL COUNT(AUTO) 4.42 MIL/uL (4.20-5.40); WHITE BLOOD COUNT (AUTO) 9.9 K/uL (4.8-10.8)
[2023-01-25 06:31] LABS: INR 1.11 (0.8-1.2); PARTIAL THROMBOPLASTIN TIME 26.7 secs (22-35.6); PROTHROMBIN TIME 11.5 secs (10.8-13.4)
[2023-01-25 06:55] LABS: ALBUMIN 3.4 g/dL (3.4-5.0); ANION GAP 12.2 (8-16); CALCIUM 8.9 mg/dL (8.5-10.1); CARBON DIOXIDE 25.4 mmol/L (21-32); CREATININE 0.8 mg/dL (0.6-1.3); POTASSIUM 3.6 mmol/L (3.5-5.1); TOTAL BILIRUBIN 0.4 mg/dL (0.0-1.0); TOTAL PROTEIN, SERUM 7.6 g/dL (6.4-8.2)
[2023-01-25] MEDS ORDERED: LIDOCAINE/EPI MPF 1%1:200000 30 ML VIAL INJ ONE (07:21)
[2023-01-25] MEDS ORDERED: BUPIVACAINE-MPF 0.25% 30 ML VIAL INJ ONE (07:21)
[2023-01-25] MEDS ORDERED: ceFAZolin 2,000 MG VIAL ONE (07:22)
[2023-01-25] MEDS ORDERED: SEVOFLURANE 250 ML BTL INH ONE (07:22)
[2023-01-25] MEDS ORDERED: MIDAZOLAM 2 MG/2 ML VIAL ONE (07:36)
[2023-01-25] MEDS ORDERED: HYDROmorphone PFS 2 MG/ML SYR ONE (07:36)
[2023-01-25 08:00] VITALS: PULSE 81; RESP 18; O2SAT 99
[2023-01-25] MEDS ORDERED: ONDANSETRON 4 MG/2 ML VIAL ONE (08:35)
[2023-01-25] MEDS ORDERED: DEXAMETHASONE 4 MG/ML VIAL ONE ×2 (08:35)
[2023-01-25] MEDS ORDERED: ePHEDrine 50 MG/ML VIAL ONE ×2 (08:35)
[2023-01-25] MEDS ORDERED: NEOSTIGMINE 1:1000 10 MG/10 ML VIAL ONE (08:36)
[2023-01-25] MEDS ORDERED: GLYCOPYRROLATE 0.2 MG/ML VIAL ONE (08:36)
[2023-01-25] MEDS: ASPIRIN 81 MG TAB.CHEW PO SCH (08:44)
[2023-01-25] MEDS ORDERED: ONDANSETRON 4 MG/2 ML VIAL IVP PRN (08:55)
[2023-01-25] MEDS ORDERED: HYDROmorphone 1 MG/ML AMP IVP PRN (08:55)
[2023-01-25] MEDS: HYDROcodone/APAP 5/325 MG 1 TAB TAB PO PRN ×2 (14:06→21:59)
[2023-01-25 16:00] VITALS: BP 132/60; PULSE 80; RESP 18; TEMP 97.4; O2SAT 96
[2023-01-25 20:00] VITALS: BP 145/68; PULSE 84; PULSE 88; RESP 18; TEMP 98; O2SAT 96; O2SAT 97
[2023-01-25] MEDS: ATORVASTATIN 20 MG TAB PO SCH (22:00)
[2023-01-26] VITALS: BP 129/57; PULSE 88; RESP 18; TEMP 97.8; O2SAT 96
[2023-01-26] MEDS: HYDROcodone/APAP 5/325 MG 1 TAB TAB PO PRN (02:39)
[2023-01-26 06:46] LABS: BASOPHILS % (AUTO) 0.3 % (0.0-2.0); EOSINOPHILS # (AUTO) 0.1 K/uL (0-0.4); EOSINOPHILS % (AUTO) 0.5 % (0.0-4.0); HEMOGLOBIN 12.4 g/dL (12.0-16.0); LYMPHOCYTES # (AUTO) 2.9 K/uL (2.5-16.5); LYMPHOCYTES % (AUTO) 21.2 % (20.5-51.1); MEAN CORPUSCULAR HEMOGLOBIN 29 pg (27-31); MEAN CORPUSCULAR HGB CONC 33 g/dL (33-37); MEAN CORPUSCULAR VOLUME 89.5 fL (80-94); MONOCYTES % (AUTO) 7.3 % (1.7-9.3); NEUTROPHILS # (AUTO) 9.5 K/uL (1.8-7.7); NEUTROPHILS % (AUTO) 70.7 % (42.2-75.2); PLATELET COUNT (AUTO) 380 K/uL (140-450); RED BLOOD CELL COUNT(AUTO) 4.25 MIL/uL (4.20-5.40); RED CELL DISTRIBUTION WIDTH 13.8 % (11.6-13.7); WHITE BLOOD COUNT (AUTO) 13.5 K/uL (4.8-10.8)
[2023-01-26 07:38] LABS: ALBUMIN 2.9 g/dL (3.4-5.0); ANION GAP 13.1 (8-16); CALCIUM 8.7 mg/dL (8.5-10.1); CARBON DIOXIDE 25.6 mmol/L (21-32); CREATININE 0.7 mg/dL (0.6-1.3); POTASSIUM 3.7 mmol/L (3.5-5.1); TOTAL BILIRUBIN 0.5 mg/dL (0.0-1.0); TOTAL PROTEIN, SERUM 7.2 g/dL (6.4-8.2)
[2023-01-26 08:00] VITALS: BP 139/66; PULSE 84; PULSE 88; PULSE 95; RESP 18; TEMP 97.1; O2SAT 94; O2SAT 96
[2023-01-26] MEDS: ASPIRIN 81 MG TAB.CHEW PO SCH (09:23)
[2023-01-26] MEDS: ACETAMINOPHEN 325 MG TAB PO PRN ×2 (11:59→23:50)
[2023-01-26 16:00] VITALS: BP 147/79; PULSE 95; RESP 19; TEMP 97.1; O2SAT 95
[2023-01-26 20:00] VITALS: PULSE 85; RESP 18; O2SAT 96
[2023-01-26] MEDS: ATORVASTATIN 20 MG TAB PO SCH (23:44)
[2023-01-26 23:50] VITALS: BP 145/85; PULSE 85; RESP 18; TEMP 98; O2SAT 96
[2023-01-27 08:00] VITALS: BP 103/56; PULSE 87; PULSE 93; RESP 18; TEMP 97.7; O2SAT 97; O2SAT 98
[2023-01-27] MEDS: ASPIRIN 81 MG TAB.CHEW PO SCH (08:42)
[2023-01-27 16:51] VITALS: BP 133/77; PULSE 99; RESP 18; TEMP 97.9; O2SAT 97
[2023-01-27 20:00] VITALS: BP 106/50; PULSE 102; RESP 18; TEMP 98.1; O2SAT 97; O2SAT 98
[2023-01-27] MEDS: ATORVASTATIN 20 MG TAB PO SCH (20:39)
[2023-01-27] MEDS: ACETAMINOPHEN 325 MG TAB PO PRN (20:41)
[2023-01-28 04:00] VITALS: BP 131/58; PULSE 78; RESP 18; TEMP 98.2; O2SAT 98
[2023-01-28 08:00] VITALS: PULSE 86; RESP 18; O2SAT 96
[2023-01-28] MEDS: ASPIRIN 81 MG TAB.CHEW PO SCH (08:54)
[2023-01-28] MEDS ORDERED: ATOR20TA40 PO (13:02)
[2023-01-28] MEDS ORDERED: ASPI81CT95 PO (13:02)
[2023-01-28 15:02] VITALS: BP 132/57; PULSE 86; RESP 20; TEMP 97.2
== END 2023-01-28 15:35 | disposition home or self-care (01) | DRG 263 ==
LOC: MED 15:23 → MTU 22:13
PROVIDERS: ADMIT Internal Medicine; ATTEND Internal Medicine
PROC: 0FT44ZZ Resection of Gallbladder, Percutaneous Endoscopic Approach (ICD-10-PCS; principal; 2023-01-25 07:30)
DX: K80.00 Calculus of gallbladder with acute cholecystitis without obstruction (principal); I21.4 Non-ST elevation (NSTEMI) myocardial infarction; R65.10 Systemic inflammatory response syndrome (SIRS) of non-infectious origin without acute organ dysfunction; R79.89 Other specified abnormal findings of blood chemistry; I10 Essential (primary) hypertension; J45.909 Unspecified asthma, uncomplicated; Z90.49 Acquired absence of other specified parts of digestive tract; Z79.1 Long term (current) use of non-steroidal anti-inflammatories (NSAID); Z79.899 Other long term (current) drug therapy
CPT/HCPCS: 36415; 70450; 71045; 71275; 76705; 78445; 80053; 81001; 81003; 82550; 83605; 83690; 83735; 83880; 84484; 85025; 85610; 85730; 86886; 86900; 86901; 86920; 87040; 87081; 87086; 88304; 93005; 93017; 96365; 96375; 99291; A9500; A9502; A9510; J0696; J1100; J1170; J1200; J1644; J2001; J2250; J2270; J2405; J2710; J2765; J2785; J3490; J7060; Q0092; Q9967